=== PATIENT | male | born 1995 | race Caucasian/White ===

== ENCOUNTER 2017-06-03 14:36 | Emergency (ER) | payer OTHER ==
--- NOTE | 2017-06-03 15:41 | CR ---
EXAMINATION: Right hand, second digit HISTORY: Pain COMPARISON: None TECHNIQUE: 3 views FINDINGS/IMPRESSION: There is no acute osseous abnormality, dislocation, or fracture. Joint spaces an d bone mineralization appear preserved. No foreign body or subcutaneous gas.
--- NOTE | 2017-06-03 15:58 | EDM.PDOC ---
ED HPI GENERAL MEDICAL PROBLEM - General Chief Complaint: Upper Extremity Injury/Pain Stated Complaint: SMASHED FINGER ON THE RT HAND Time Seen by Provider: 06/03/17 15:54 Source of Information: Reports: Patient - History of Present Illness INITIAL COMMENTS - FREE TEXT/NARRATIVE: HISTORY AND PHYSICAL: History of present illness: [Patient presents with pain in the right second digit, one week prior at the end of his finger with framing hammer, complains of 5 out of 10 pain however generally has been working over the last week he has redness associated with the distal phalanx mild tenderness no exudate for culture No fever nausea vomiting chills sweats ] Review of systems: As per history of present illness and below otherwise all systems reviewed and negative. Past medical history: As per history of present illness and as reviewed below otherwise noncontributory. Surgical history: As per history of present illness and as reviewed below otherwise noncontributory. Social history: No reported history of drug or alcohol abuse. Family history: As per history of present illness and as reviewed below otherwise noncontributory. Physical exam: HEENT: Atraumatic, normocephalic, pupils reactive, negative for conjunctival pallor or scleral icterus, mucous membranes moist, throat clear, neck supple, nontender, trachea midline. Lungs: Clear to auscultation, breath sounds equal bilaterally, chest nontender. Heart: S1S2, regular, negative for clicks, rubs, or JVD. Abdomen: Soft, nondistended, nontender. Negative for masses or hepatosplenomegaly. Negative for costovertebral tenderness. Pelvis: Stable nontender. Genitourinary: Deferred. Rectal: Deferred. Extremities: Atraumatic, negative for cords or calf pain. Neurovascular unremarkable. Neuro: Awake, alert, oriented. Cranial nerves II through XII unremarkable. Cerebellum unremarkable. Motor and sensory unremarkable throughout. Exam nonfocal. Right hand right second digit distal phalanx is red and tender consistent with a cellulitis there is no exudate or drainage or open lesion for culture entire limb is neurovascularly intact Unaffected above the wrist essentially unaffected above the distal phalanx of the second digit Diagnostics: []Right second finger 3 views Therapeutics: []Bactrim double strength by mouth twice a day #20 no refill Follow-up maureen Dhillon one week Impression: [Right second digit cellulitis, distal phalanx Contusion Splint for protection, comfort and healing] Definitive disposition and diagnosis as appropriate pending reevaluation and review of above. Right Index Finger Pain Score (Numeric/FACES): 3 - Related Data Allergies Allergy/AdvReac Type Severity Reaction Status Date / Time sunscreen Allergy Rash Uncoded 06/03/17 14:58 Home Meds: Home Meds . [No Known Home Meds] 06/03/17 [History] Past Medical History - Past Health History Medical/Surgical History: Denies Medical/Surgical History Social & Family History - Family History Family Medical History: Noncontributory - Tobacco Use Smoking Status *Q: Never Smoker - Recreational Drug Use Recreational Drug Use: No Review of Systems - Review of Systems Review Of Systems: ROS reveals no pertinent complaints other than HPI. ED EXAM, GENERAL - Physical Exam Exam: See Below Course - Vital Signs Last Recorded V/S: Last Vital Signs Temp 36.4 C 06/03/17 14:59 Pulse 74 06/03/17 14:59 Resp 16 06/03/17 14:59 BP 140/82 06/03/17 14:59 Pulse Ox 98 06/03/17 14:59 Departure - Departure Time of Disposition: 15:56 Disposition: Home, Self-Care 01 Condition: Good Clinical Impression: Cellulitis - Discharge Information Referrals: PCP,None [Primary Care Provider] - Additional Instructions: Rest Ice 20 minute intervals 3 times daily 7-10 days Ibuprofen 400 mg 3 times daily 7-10 days Medication as prescribed Splint for protection, comfort, and healing Follow-up with Dr. Camille Dickens hand specialist 7-10 days Call number below for an appointment for appropriate follow-up [facility] - Plastic Surgery Professional [address], [address] [place] [address] The following information is given to patients seen in the emergency department who are being discharged to home. This information is to outline your options for follow-up care. We provide all patients seen in our emergency department with a follow-up referral. The need for follow-up, as well as the timing and circumstances, are variable depending upon the specifics of your emergency department visit. If you don't have a primary care physician on staff, we will provide you with a referral. We always advise you to contact your personal physician following an emergency department visit to inform them of the circumstance of the visit and for follow-up with them and/or the need for any referrals to a consulting specialist. The emergency department will also refer you to a specialist when appropriate. This referral assures that you have the opportunity for follow-up care with a specialist. All of these measure are taken in an effort to provide you with optimal care, which includes your follow-up. Under all circumstances we always encourage you to contact your private physician who remains a resource for coordinating your care. When calling for follow-up care, please make the office aware that this follow-up is from your recent emergency room visit. If for any reason you are refused follow-up, please contact the [facility] emergency department at and asked to speak to the emergency department charge nurse.
== END 2017-06-03 16:11 | disposition home or self-care (01) ==
LOC: MW.ED 14:36
DX: S60.021A Contusion of right index finger without damage to nail, initial encounter (principal); L03.011 Cellulitis of right finger; Z91.048 Other nonmedicinal substance allergy status; W22.8XXA Striking against or struck by other objects, initial encounter
CPT/HCPCS: 73140-26-F6; 73140-F6; 99282; 99283